=== PATIENT | female | born 1960 | race Caucasian/White ===

== ENCOUNTER → 2018-05-02 | Outpatient (CLI) | payer BC ==
[~2018-05-02] VITALS: Ht 172.7 cm; Wt 90.7 kg
[~2018-05-02] MED LIST: BUSPAR10 MG PO; CELEXA20 MG PO; WELLBUTRIN75 MG PO
== END | disposition home or self-care (01) ==
LOC: AMB 12:30
PROC: 0DJD8ZZ Inspection of Lower Intestinal Tract, Via Natural or Artificial Opening Endoscopic (ICD-10-PCS; principal; 2018-05-02)
DX: Z12.11 Encounter for screening for malignant neoplasm of colon (principal); Z86.010 Personal history of colon polyps; E66.9 Obesity, unspecified; Z68.32 Body mass index [BMI] 32.0-32.9, adult; Z80.7 Family history of other malignant neoplasms of lymphoid, hematopoietic and related tissues